=== PATIENT | female | born 1995 | race African-American/Black ===

== ENCOUNTER 2018-01-18 15:21 | Inpatient (IN) | payer MEDICAID, OTHER ==
[~2018-01-18] VITALS: Ht 152.4 cm; Wt 69.5 kg
[~2018-01-18 15:21] MED LIST: DICL-86 PO; Z.0.NO CURRENT MEDS
[2018-01-18 15:45] VITALS: BP 125/71; PULSE 123; RESP 18; TEMP 99; O2SAT 100
[2018-01-18] MEDS ORDERED: LIDOCAINE 1%/EPINEPHrine 1:100,000 SOLN 20 ML VIAL INFIL ONE (18:30)
[2018-01-18] MEDS ORDERED: cefTRIAXone INJ 1,000 MG in SODIUM CHLORIDE 0.9% INJ 100 ML IV ONE (18:45)
--- NOTE | 2018-01-18 18:49 | PD ---
HPI Chief Complaint: Related Problem Time Seen by Provider: 18:12 Travel History International Travel<30 days: No Contact w/Intl Traveler<30days: No Traveled to known affect area: No History of Present Illness HPI 22-year-old female here for evaluation of abdominal cramping with a positive home test as well as left buttock abscess. The patient reports that her last mental period was 11/09/17. This is her first . For the last 2 days she has been having intermittent lower abdominal cramping. She denies vaginal bleeding or discharge. She is sexually active with one partner and believe she is in a monogamous relationship. No urinary symptoms. Patient also reports a "boil" on her left buttock that she first noticed 2 days ago and has progressively increased in size. She has been squeezing the area. Pain to this area is moderate to severe, constant, worse with palpation. She has had subjective fevers. She denies history of IVDU. [facility] Past Medical History Medical History: Denies Significant Hx Tetanus Vaccination: < 5 Years ?: LMP: 11/09/17 Past Surgical History Surgical History: No Previous Surgery Social History Alcohol Use: No Tobacco Use: No Substance Use: No Allergies-Medications (Allergen,Severity, Reaction): Coded Allergies: No Known Allergies (Unverified Allergy, Unknown, 01/18/18) Reported Meds & Prescriptions Reported Meds & Active Scripts Active Review of Systems Except as stated in HPI: all other systems reviewed are Neg Physical Exam Narrative GENERAL: Well-developed, well-nourished, awake, alert, no apparent distress. SKIN: Focused skin assessment warm/dry. Exam performed in the presence of a female nurse. There is a large area of induration with central fluctuance to the left superior buttocks just lateral to the gluteal cleft. This does not track towards the rectum/anus. There is no spontaneous drainage. There is mild overlying warmth. No crepitus. This area was evaluated using a bedside ultrasound probe and shows a large approximately 4 x 4 centimeter hypoechoic area. HEAD: Atraumatic. Normocephalic. EYES: Pupils equal and round. No scleral icterus. No injection or drainage. ENT: Mucous membranes pink and moist. NECK: Trachea midline. No JVD. CARDIOVASCULAR: Regular rate and rhythm. RESPIRATORY: No accessory muscle use. Clear to auscultation. Breath sounds equal bilaterally. GASTROINTESTINAL: Abdomen soft, non-tender, nondistended. MUSCULOSKELETAL: No obvious deformities. No clubbing. No cyanosis. No edema. NEUROLOGICAL: Awake and alert. No obvious cranial nerve deficits. Motor grossly within normal limits. Normal speech. PSYCHIATRIC: Appropriate mood and affect; insight and judgment normal. Data Data Last Documented VS Vital Signs Date Time Temp Pulse Resp B/P (MAP) Pulse Ox O2 Delivery O2 Flow Rate FiO2 01/18/18 23:12 99.6 116 16 112/60 (77) 01/18/18 21:08 100 Room Air Orders Orders Beta Hcg (Quant/Titer) (01/18/18 18:20) Complete Blood Count With Diff (01/18/18 18:20) Comprehensive Metabolic Panel (01/18/18 18:20) Urinalysis - C+S If Indicated (01/18/18 18:20) Ed Urine Pregnancytest Poc (01/18/18 18:20) Lidocai-Epi 1%-1:100,000 Inj (Xylocaine- (01/18/18 18:30) Wound Culture And Gram Stain (01/18/18 18:22) Us Pelvis (Ques Preg/Ectopic) (01/18/18 ) Ondansetron Odt (Zofran Odt) (01/18/18 19:45) Cephalexin (Keflex) (01/18/18 19:45) Urine Culture (01/18/18 19:30) Sodium Chlor 0.9% 1000 Ml Inj (Ns 1000 M (01/18/18 21:45) Acetaminophen (Tylenol) (01/18/18 21:45) Sodium Chlor 0.9% 1000 Ml Inj (Ns 1000 M (01/18/18 22:30) Blood Culture (01/18/18 23:00) Vancomycin Inj (Vancomycin Inj) (01/18/18 23:30) Vancomycin Consult Pharmacy (Vancomycin (01/18/18 23:30) Admit To Inpatient (01/18/18 ) Vital Signs (Adult) Q4H (01/18/18 23:24) Activity Oob Ad Amaya (01/18/18 23:24) Litigation Secretary / Telemetry .CONTINUOUS (01/18/18 23:24) Intake + Output VALENTIN.QSHIFT (01/18/18 23:24) Diet Regular Basic (01/19/18 Breakfast) Sodium Chlor 0.9% 1000 Ml Inj (Ns 1000 M (01/18/18 23:24) Sodium Chloride 0.9% Flush (Ns Flush) (01/18/18 23:30) Sodium Chloride 0.9% Flush (Ns Flush) (01/19/18 09:00) Ondansetron Inj (Zofran Inj) (01/18/18 23:30) Comprehensive Metabolic Panel (01/19/18 06:00) Complete Blood Count With Diff (01/19/18 06:00) Consult Wound / Ostomy Nurse (01/18/18 23:24) Scd Bilateral/Knee High VALENTIN.BID (01/18/18 23:24) Teofilo Bilateral/Knee High VALENTIN.QSHIFT (01/18/18 23:27) Acetaminophen (Tylenol) (01/18/18 23:30) Docusate Sodium-Senna (Blossom-Colace) (01/19/18 09:00) Magnesium Hydroxide Liq (Milk Of Magnesi (01/18/18 23:30) Sennosides (Senokot) (01/18/18 23:30) Bisacodyl Supp (Dulcolax Supp) (01/18/18 23:30) Lactulose Liq (Lactulose Liq) (01/18/18 23:30) Inpatient Certification (01/18/18 ) Admit Order (Ed Use Only) (01/18/18 23:29) Ceftriaxone Inj (Rocephin Inj) (01/20/18 01:00) Labs Laboratory Tests Test 01/18/18 19:30 White Blood Count 9.6 TH/MM3 Red Blood Count 4.44 MIL/MM3 Hemoglobin 11.7 GM/DL Hematocrit 34.7 % Mean Corpuscular Volume 78.1 FL Mean Corpuscular Hemoglobin 26.4 PG Mean Corpuscular Hemoglobin Concent 33.8 % Red Cell Distribution Width 13.9 % Platelet Count 281 TH/MM3 Mean Platelet Volume 8.2 FL Neutrophils (%) (Auto) 81.5 % Lymphocytes (%) (Auto) 7.0 % Monocytes (%) (Auto) 11.0 % Eosinophils (%) (Auto) 0.2 % Basophils (%) (Auto) 0.3 % Neutrophils # (Auto) 7.9 TH/MM3 Lymphocytes # (Auto) 0.7 TH/MM3 Monocytes # (Auto) 1.1 TH/MM3 Eosinophils # (Auto) 0.0 TH/MM3 Basophils # (Auto) 0.0 TH/MM3 CBC Comment DIFF FINAL Differential Comment Urine Color YELLOW Urine Turbidity HAZY Urine pH 6.5 Urine Specific [place] 1.027 Urine Protein 30 mg/dL Urine Glucose (UA) NEG mg/dL Urine Ketones NEG mg/dL Urine Occult Blood MOD Urine Nitrite NEG Urine Bilirubin NEG Urine Urobilinogen LESS THAN 2.0 MG/DL Urine Leukocyte Esterase NEG Urine RBC 69 /hpf Urine WBC 4 /hpf Urine Squamous Epithelial Cells 10 /hpf Urine Bacteria MOD /hpf Urine Mucus MANY /lpf Microscopic Urinalysis Comment CULTURE INDICATED Blood Urea Nitrogen 8 MG/DL Creatinine 0.74 MG/DL Random Glucose 80 MG/DL Total Protein 8.3 GM/DL Albumin 3.4 GM/DL Calcium Level 9.4 MG/DL Alkaline Phosphatase 66 U/L Aspartate Amino Transf (AST/SGOT) 13 U/L Alanine Aminotransferase (ALT/SGPT) 17 U/L Total Bilirubin 0.2 MG/DL Sodium Level 132 MEQ/L Potassium Level 3.3 MEQ/L Chloride Level 100 MEQ/L Carbon Dioxide Level 21.0 MEQ/L Anion Gap 11 MEQ/L Estimat Glomerular Filtration Rate 118 ML/MIN Human Chorionic Gonadotropin, Quant 90931 MIU/ML [facility] Medical Decision Making Medical Screen Exam Complete: Yes Emergency Medical Condition: Yes Differential Diagnosis Left buttock abscess, , ectopic Narrative Course Vital signs reviewed. CBC: WBC 9.6, hemoglobin 11.7, hematocrit 34.7, platelets 281, neutrophils 82%. CMP is remarkable for potassium 3.3, otherwise unremarkable. Beta-hCG UA shows moderate bacteria, many mucus, 69 RBCs. Pelvic ultrasound: CONCLUSION: 1. Single intrauterine gestational sac corresponding to 10 weeks 4 days. 2. bradycardia with heart rate up to 97 bpm. 3. Small amount of free fluid in the pelvis. I discussed the bradycardia with the on-call OB hospitalist who states that this is a nonspecific finding. Patient had a large left buttock abscess that was incised and drained and packed with plain packing. See procedure note. The patient was informed to have the packing removed in 48 hours, and the dangers of keeping it in for longer than this. Patient was initially given 500 mg of oral Keflex as IV access was difficult to obtain an initial plan was for the patient to be discharged. The patient's initial heart rate was in the 120s. She was given 2 L of normal saline IV and oral Tylenol, however her heart rate only slightly improved to about 115, sinus. Blood pressure has remained normal. Tachycardia could be secondary to infection from abscess. Blood cultures obtained. The patient will be given a dose of IV vancomycin and will be admitted as she meets SIRS criteria. Patient was made aware of all findings and plan. Case discussed with hospitalist Dr. Dodson who will admit the patient to her service. Procedures Procedure Narrative Bedside ultrasound: Using the linear ultrasound probe, a bedside ultrasound was performed by me to evaluate area of induration on the patient's left buttock. There is an approximately 4 x 4 centimeter hypoechoic area that is consistent with an abscess. Incision and drainage of left buttock abscess: Area prepped with alcohol swab. 2 cc of 1% lidocaine with epinephrine was used for local anesthesia. An approximately 2 cm linear/vertical incision was made over the highest area of fluctuance with immediate release of foul-smelling purulence. All loculations were broken open with blunt probe, and the abscess pocket was flushed with normal saline. Culture of the purulence was obtained. 1 inch plain packing was placed into the abscess pocket. Sterile dressing applied. Diagnosis Primary Impression: SIRS (systemic inflammatory response syndrome) Additional Impressions: Left buttock abscess Intrauterine Admitting Information Admitting Physician Requests: it Uriel Reyes MD Jan 18, 2018 18:48
[2018-01-18] MEDS ORDERED: ONDANSETRON ODT 4 MG TAB PO ONE (19:45)
[2018-01-18] MEDS ORDERED: CEPHALEXIN MONOHYDRATE 500 MG CAP PO ONE (19:45)
[2018-01-18 19:57] LABS: AUTOMATED NEUTROPHIL # 7.9 TH/MM3 (1.8-7.7); BASOPHIL % 0.3 % (0.0-2.0); EOSINOPHIL % 0.2 % (0.0-4.0); HEMATOCRIT 34.7 % (35.0-46.0); HEMOGLOBIN 11.7 GM/DL (11.6-15.3); LYMPHOCYTE # 0.7 TH/MM3 (1.0-4.8); MEAN CELL VOLUME 78.1 FL (80.0-100.0); MEAN CORPUSCULAR HEMOGLOBIN 26.4 PG (27.0-34.0); MEAN CORPUSCULAR HGB CONC 33.8 % (32.0-36.0); MEAN PLATELET VOLUME 8.2 FL (7.0-11.0); MONOCYTE # 1.1 TH/MM3 (0-0.9); NEUT % 81.5 % (16.0-70.0); PLATELET COUNT 281 TH/MM3 (150-450); RED BLOOD COUNT 4.44 MIL/MM3 (4.00-5.30); RED CELL DISTRIBUTION WIDTH 13.9 % (11.6-17.2); WHITE BLOOD COUNT 9.6 TH/MM3 (4.0-11.0)
[2018-01-18 20:14] LABS: BACTERIA, URINE MOD /hpf; BILIRUBIN, URINE NEG (NEG); BLOOD, URINE MOD (NEG); GLUCOSE,URINE NEG (NEG); KETONE, URINE NEG (NEG); MUCUS URINE MANY /lpf (OCC); NITRITE,URINE NEG (NEG); PH, URINE 6.5 (5.0-8.5); SQUAMOUS EPITHELIAL CELL URINE 10 /hpf (0-5); URINE COLOR YELLOW (YELLW/STRAW); URINE LEUKOCYTE ESTERASE NEG (NEG)
[2018-01-18 20:20] LABS: ALBUMIN 3.4 GM/DL (3.4-5.0); AST (GOT) 13 U/L (15-37); BLOOD UREA NITROGEN 8 MG/DL (7-18); CALCIUM 9.4 MG/DL (8.5-10.1); CHLORIDE 100 MEQ/L (98-107); CREATININE 0.74 MG/DL (0.50-1.00); GLOMERULAR FILTRATION RATE 118 ML/MIN (>89); GLUCOSE,RANDOM 80 MG/DL (74-106); SODIUM (NA) 132 MEQ/L (136-145)
[2018-01-18 20:21] LABS: ALT (GPT) 17 U/L (10-53)
[2018-01-18 20:23] LABS: ALKALINE PHOSPHATASE 66 U/L (45-117); TOTAL BILIRUBIN ADULT 0.2 MG/DL (0.2-1.0); TOTAL PROTEIN 8.3 GM/DL (6.4-8.2)
[2018-01-18 21:08] VITALS: BP 107/57; PULSE 111; RESP 16; O2SAT 100
--- NOTE | 2018-01-18 21:16 | RADRPT ---
EXAM DATE/TIME: 01/18/2018 19:55 [place] COMPARISON: No previous studies available for comparison. INDICATIONS : Pelvic pain. LAB(S): Beta-hC,840 MEDICAL HISTORY : Pelvic pain. SURGICAL HISTORY : None. ENCOUNTER: Initial ACUITY: 1 day PAIN SCORE: 5/10 LOCATION: Left pelvis MEASUREMENTS: UTERUS: 11.7 x 6.0 x 5.5 cm ENDOMETRIAL STRIPE: 18 mm RIGHT OVARY: 2.6 x 2.9 x 2.1 cm LEFT OVARY: 2.1 x 2.5 x 1.5 cm FREE FLUID: Yes cul de sac CROWN RUMP LENGTH: 3.8 = 10 WKS 4 DAYS FHR: 97 BPM FINDINGS: UTERUS: There is a single intrauterine gestational sac with pole present. pole corresponds to 10 weeks 4 days. cardiac activity is present at 97 bpm. RIGHT OVARY: Ovary contains no mass or significant cystic lesion. LEFT OVARY: Ovary contains no mass or significant cystic lesion. MISCELLANEOUS: Free fluid in the cul-de-sac. CONCLUSION: 1. Single intrauterine gestational sac corresponding to 10 weeks 4 days. 2. bradycardia with heart rate up to 97 bpm. 3. Small amount of free fluid in the pelvis. Kai Mcintosh MD on January 18, 2018 at 21:10 Board Certified Radiologist. This report was verified electronically.
[2018-01-18] MEDS ORDERED: ACETAMINOPHEN 325 MG TAB PO ONE (21:45)
[2018-01-18] MEDS ORDERED: SODIUM CHLOR 0.9% 1000 ML INJ 1,000 ML IV ONE ×2 (21:45→22:30)
[2018-01-18 22:34] VITALS: PULSE 114
[2018-01-18 23:12] VITALS: BP 112/60; PULSE 116; RESP 16; TEMP 99.6
--- NOTE | 2018-01-18 23:28 | HHI.HP ---
HPI Service [facility] Primary Care Physician No Primary Care Physician Admission Diagnosis Diagnoses: (1) SIRS (systemic inflammatory response syndrome) Diagnosis: Principal (2) Left buttock abscess Diagnosis: Principal (3) Diagnosis: Principal Travel History International Travel<30 Days: No Contact w/Intl Traveler <30 Da: No Traveled to Known Affected Are: No History of Present Illness This is a 22-year-old (10wks) female with no significant PMH who presented to the ER w/ complaints of left buttock abscess. States she noticed a boil on her buttock 2 days ago which has been getting progressively worse, larger and more painful. Denies fever or chills, no nausea, vomiting or diarrhea. Has not initiated care as she is moving to [place] in 3 days and will be establishing w/ [employer] there. On arrival, BP 124/72, HR 110, O2 sat 100 % on RA, Temp 99.6. WBC normal however elevated neutrophil count. Chemistry essentially unremarkable. Pelvis US single intrauterine gestational sac corresponding to 10 weeks 4 days, bradycardia with heart rate up to 97, small amount of free fluid in the pelvis. Ob Hospitalist consulted by ER physician, bradycardia nonspecific finding, no intervention warranted. S/p I&D in addition to Vanc/Rocephin in ER, was to be d/c'd home, however pt w/ persistent tachycardia/fever. Review of Systems Except as stated in HPI: all other systems reviewed are Neg ROS: 14 point review of systems otherwise negative. Past Family Social History Past Medical History PMH: None Past Surgical History PAST SURGICAL HISTORY: None Allergies: Coded Allergies: No Known Allergies (Unverified Allergy, Unknown, 01/18/18) Family History PAST FAMILY HISTORY: Reviewed. No h/o DM or CAD Social History PAST SOCIAL HISTORY: Negative for alcohol, tobacco or drugs. Physical Exam Vital Signs Vital Signs Date Time Temp Pulse Resp B/P (MAP) Pulse Ox O2 Delivery O2 Flow Rate FiO2 01/18/18 23:12 99.6 116 16 112/60 (77) 01/18/18 22:34 114 01/18/18 21:08 111 16 107/57 (74) 100 Room Air 01/18/18 15:45 99.0 123 18 125/71 (89) 100 Physical Exam PE: GENERAL: Very pleasant young female in no acute distress. HEENT: PERRLA, EOMI. No scleral icterus or conjunctival pallor. No lid lag or facial droop. CARDIOVASCULAR: Regular rate and rhythm. No obvious murmurs to auscultation. No chest tenderness to palpation. RESPIRATORY: No obvious rhonchi or wheezing. Clear to auscultation. Breath sounds equal bilaterally. GASTROINTESTINAL: Abdomen soft, non-tender, nondistended. BS normal. MUSCULOSKELETAL: Extremities without clubbing, cyanosis, or edema. No obvious deformities. Left gluteal abscess s/p I&D, packing in place. NEUROLOGICAL: Awake, alert and oriented x4. No focal neurologic deficits. Moving both upper and lower extremities spontaneously. Laboratory Laboratory Tests Test 01/18/18 19:30 White Blood Count 9.6 Red Blood Count 4.44 Hemoglobin 11.7 Hematocrit 34.7 Mean Corpuscular Volume 78.1 Mean Corpuscular Hemoglobin 26.4 Mean Corpuscular Hemoglobin Concent 33.8 Red Cell Distribution Width 13.9 Platelet Count 281 Mean Platelet Volume 8.2 Neutrophils (%) (Auto) 81.5 Lymphocytes (%) (Auto) 7.0 Monocytes (%) (Auto) 11.0 Eosinophils (%) (Auto) 0.2 Basophils (%) (Auto) 0.3 Neutrophils # (Auto) 7.9 Lymphocytes # (Auto) 0.7 Monocytes # (Auto) 1.1 Eosinophils # (Auto) 0.0 Basophils # (Auto) 0.0 CBC Comment DIFF FINAL Differential Comment Urine Color YELLOW Urine Turbidity HAZY Urine pH 6.5 Urine Specific [place] 1.027 Urine Protein 30 Urine Glucose (UA) NEG Urine Ketones NEG Urine Occult Blood MOD Urine Nitrite NEG Urine Bilirubin NEG Urine Urobilinogen LESS THAN 2.0 Urine Leukocyte Esterase NEG Urine RBC 69 Urine WBC 4 Urine Squamous Epithelial Cells 10 Urine Bacteria MOD Urine Mucus MANY Microscopic Urinalysis Comment CULTURE INDICATED Blood Urea Nitrogen 8 Creatinine 0.74 Random Glucose 80 Total Protein 8.3 Albumin 3.4 Calcium Level 9.4 Alkaline Phosphatase 66 Aspartate Amino Transf (AST/SGOT) 13 Alanine Aminotransferase (ALT/SGPT) 17 Total Bilirubin 0.2 Sodium Level 132 Potassium Level 3.3 Chloride Level 100 Carbon Dioxide Level 21.0 Anion Gap 11 Estimat Glomerular Filtration Rate 118 Human Chorionic Gonadotropin, Quant [id number] Date/Time Source Procedure Growth Status 01/18/18 19:30 Urine Random Urine Urine Culture Pending Received 01/18/18 19:30 Wound Buttock Gram Stain Pending Received 01/18/18 19:30 Wound Buttock Wound Culture Pending Received Result Diagram: 01/18/18192901/18/181929 Caprini VTE Risk Assessment Caprini VTE Risk Assessment: No/Low Risk (score <= 1) Caprini Risk Assessment Model Point Value = 1 Point Value = 2 Point Value = 3 Point Value = 5 Age 41-60 Minor surgery BMI > 25 kg/m2 Swollen legs Varicose veins or History of unexplained or recurrent spontaneous Oral contraceptives or hormone replacement Sepsis (< 1 month) Serious lung disease, including pneumonia (< 1 month) Abnormal pulmonary function Acute myocardial infarction Congestive heart failure (< 1 month) History of inflammatory bowel disease Medical patient at bed rest Age 61-74 Arthroscopic surgery Major open surgery (> 45 min) Laparoscopic surgery (> 45 min) Malignancy Confined to bed (> 72 hours) Immobilizing plaster cast Central venous access Age >= 75 History of VTE Family history of VTE Factor V Leiden Prothrombin [id number] Lupus anticoagulant Anticardiolipin antibodies Elevated serum homocysteine Heparin-induced thrombocytopenia Other congenital or acquired thrombophilia Stroke (< 1 month) Elective arthroplasty Hip, pelvis, or leg fracture Acute spinal cord injury (< 1 month) Prophylaxis Regimen Total Risk Factor Score Risk Level Prophylaxis Regimen 0-1 Low Early ambulation 2 Moderate Order ONE of the following: *Sequential Compression Device (SCD) *Heparin 5000 units SQ BID 3-4 Higher Order ONE of the following medications: *Heparin 5000 units SQ TID *Enoxaparin/Lovenox 40 mg SQ daily (WT < 150 kg, CrCl > 30 mL/min) *Enoxaparin/Lovenox 30 mg SQ daily (WT < 150 kg, CrCl > 10-29 mL/min) *Enoxaparin/Lovenox 30 mg SQ BID (WT < 150 kg, CrCl > 30 mL/min) AND/OR *Sequential Compression Device (SCD) 5 or more Highest Order ONE of the following medications: *Heparin 5000 units SQ TID (Preferred with Epidurals) *Enoxaparin/Lovenox 40 mg SQ daily (WT < 150 kg, CrCl > 30 mL/min) *Enoxaparin/Lovenox 30 mg SQ daily (WT < 150 kg, CrCl > 10-29 mL/min) *Enoxaparin/Lovenox 30 mg SQ BID (WT < 150 kg, CrCl > 30 mL/min) AND *Sequential Compression Device (SCD) Assessment and Plan Problem List: (1) SIRS (systemic inflammatory response syndrome) ICD Code: R65.10 - Systemic inflammatory response syndrome (SIRS) of non- infectious origin without acute organ dysfunction Status: Acute (2) Left buttock abscess ICD Code: L02.31 - Cutaneous abscess of buttock Status: Acute (3) ICD Code: Z34.90 - Encounter for supervision of normal , unspecified, unspecified trimester Assessment and Plan A/P: 1. SIRS: Temp 99.6, HR 120's, WBC normal however elevated neutrophil count, s/ p IVF w/ persistent tachycardia. Continue w/ IVF, Tylenol prn, no Motrin in light of . Telemetry. 2. Left Gluteal Abscess: s/p I&D in ER, follow up cultures, continue w/ IV Abx , Wound Consult for dressing changes. 3. : 10wks, Pelvic US w/ 10wk, 4 day intrauterine , bradycardia, Ob Hospitalist consulted by ER physician, nonspecific finding, no intervention needed. Pt moving to [place] in 3 days, will establish w/ [employer] Development Manager in [place]. 4. DVT Prophylaxis: SCD/Teds 5. Social work for d/c planning as needed. 6. Case discussed at length w/ ER physician, labs/records/imaging reviewed by [place] Physician Certification 2 Midnight Certification Type: Admission for Inpatient Services Order for Inpatient Services The services are ordered in accordance with Medicare regulations or non- Medicare payer requirements, as applicable. In the case of services not specified as inpatient-only, they are appropriately provided as inpatient services in accordance with the 2-midnight benchmark. Estimated LOS (days): 2 days is the estimated time the patient will need to remain in the hospital, assuming treatment plan goals are met and no additional complications. Post-Hospital Plan: Not yet determined Zoe Dodson MD Jan 18, 2018 23:28
[2018-01-18] MEDS ORDERED: MAGNESIUM HYDROXIDE SUSP 30 ML CUP PO PRN (23:30)
[2018-01-18] MEDS ORDERED: Vancomycin Consult Pharmacy 1 EA OTHER SCH (23:30)
[2018-01-18] MEDS ORDERED: LACTULOSE SYRUP 20 GM/30 ML CUP PO PRN (23:30)
[2018-01-18] MEDS ORDERED: BISACODYL 10 MG SUPP RECTAL PRN (23:30)
[2018-01-18] MEDS ORDERED: ACETAMINOPHEN 325 MG TAB PO PRN (23:30)
[2018-01-18] MEDS ORDERED: SODIUM CHLORIDE 0.9% FLUSH 10 ML FLUSH IV FLUSH PRN (23:30)
[2018-01-18] MEDS ORDERED: ONDANSETRON HCL 4 MG/2 ML VIAL IVP PRN (23:30)
[2018-01-18] MEDS ORDERED: SENNOSIDES 8.6 MG TAB PO PRN (23:30)
[2018-01-18] MEDS ORDERED: VANCOMYCIN INJ 1,000 MG in SODIUM CHLOR 0.9% 250 ML INJ 250 ML IV ONE (23:30)
[2018-01-18] MEDS: SODIUM CHLOR 0.9% 1000 ML INJ 1,000 ML IV SCH (23:43)
[2018-01-19] VITALS (12 sets, daily range): BP systolic 100–131; BP diastolic 50–76; PULSE 84–115; RESP 16; TEMP 97.6–98.3; O2SAT 100
[2018-01-19] MEDS: SODIUM CHLORIDE 0.9% FLUSH 10 ML FLUSH IV FLUSH SCH ×2 (09:00→21:00)
--- NOTE | 2018-01-19 09:00 | HHI.PR ---
Subjective Remarks per patient decrease pain left gluteal area- "just a little" no history of UTI, vaginal discharge or any skin infections in the past Objective Vitals Vital Signs Date Time Temp Pulse Resp B/P (MAP) Pulse Ox O2 Delivery O2 Flow Rate FiO2 01/19/18 04:08 Room Air 01/19/18 04:00 89 01/19/18 04:00 97.7 96 16 100/56 (71) 100 01/19/18 00:50 104 01/19/18 00:38 01/19/18 00:30 98.2 107 16 131/76 (94) 100 01/19/18 00:30 Room Air 01/19/18 00:04 104 01/18/18 23:12 99.6 116 16 112/60 (77) 01/18/18 22:34 114 01/18/18 21:08 111 16 107/57 (74) 100 Room Air 01/18/18 15:45 99.0 123 18 125/71 (89) 100 I/O 01/18/18 01/18/18 01/18/18 01/19/18 01/19/18 01/19/18 07:00 15:00 23:00 07:00 15:00 23:00 Intake Total 240 ml Balance 240 ml Intake Oral 240 ml # Voids 2 # Bowel Movements 0 Result Diagram: 01/18/18192901/18/181929 Imaging Last Impressions Pelvis Ultrasound 01/18/18 0000 Signed Impressions: Service Date/Time: Thursday, January 18, 2018 19:55 - CONCLUSION: 1. Single intrauterine gestational sac corresponding to 10 weeks 4 days. 2. bradycardia with heart rate up to 97 bpm. 3. Small amount of free fluid in the pelvis. Kai Mcintosh MD Objective Remarks awake and alert, no acute distress anicteric lungs- no rales regular rhythm abdomen soft, nontender Left gluteal area- small incision s/p I and small with area of fluctuance, less tender to touch per patient no edema A/P Problem List: (1) SIRS (systemic inflammatory response syndrome) ICD Code: R65.10 - Systemic inflammatory response syndrome (SIRS) of non- infectious origin without acute organ dysfunction Status: Acute (2) Left buttock abscess ICD Code: L02.31 - Cutaneous abscess of buttock Status: Acute (3) ICD Code: Z34.90 - Encounter for supervision of normal , unspecified, unspecified trimester Assessment and Plan 22 years old female Sepsis secondary to left Gluteal abscess S/P I and D- pus obtained- per patient first episode cultures, gram stain pending, maNy WBCs Packing in place. wound care team consult consult Infectious disease for AB recommendations - d/w Pharmacy- Don - re: ? Vancomycin safety continue on IV Ceftriaxone for now Continue w/ IVF, Tylenol prn, PU 10 weeks AOG OB Hospitalist consulted by ER physician Pt moving to [place] in 3 days, will establish w/ [employer] in [place]. Hypokalemia- recheck BMP DVT Prophylaxis: SCD/Teds. encourage patient to up and ambulate around her room Social work for d/c planning as needed. Problem Qualifiers (1) : Qualified Codes: Z3A.10 - 10 weeks gestation of Андрей Rayo MD Jan 19, 2018 09:00
[2018-01-19] MEDS: DOCUSATE SODIUM 50 MG/SENNA 8.6 MG TAB PO SCH ×2 (10:13→22:59)
[2018-01-19] MEDS: SODIUM CHLOR 0.9% 1000 ML INJ 1,000 ML IV SCH ×2 (10:17→19:24)
[2018-01-19] MEDS ORDERED: LIDOCAINE 4% CREAM 5 GM TUBE TOPICAL PRN (11:00)
[2018-01-19 14:07] LABS: AUTOMATED NEUTROPHIL # 4.4 TH/MM3 (1.8-7.7); BASOPHIL % 0.2 % (0.0-2.0); EOSINOPHIL # 0.1 TH/MM3 (0-0.4); EOSINOPHIL % 1.1 % (0.0-4.0); HEMATOCRIT 30.8 % (35.0-46.0); HEMOGLOBIN 10.3 GM/DL (11.6-15.3); LYMPH % 13.8 % (9.0-44.0); LYMPHOCYTE # 0.8 TH/MM3 (1.0-4.8); MEAN CELL VOLUME 78.8 FL (80.0-100.0); MEAN CORPUSCULAR HEMOGLOBIN 26.4 PG (27.0-34.0); MEAN CORPUSCULAR HGB CONC 33.4 % (32.0-36.0); MEAN PLATELET VOLUME 7.9 FL (7.0-11.0); MONO % 8.2 % (0.0-8.0); MONOCYTE # 0.5 TH/MM3 (0-0.9); NEUT % 76.7 % (16.0-70.0); PLATELET COUNT 254 TH/MM3 (150-450); RED BLOOD COUNT 3.91 MIL/MM3 (4.00-5.30); RED CELL DISTRIBUTION WIDTH 14.3 % (11.6-17.2); WHITE BLOOD COUNT 5.8 TH/MM3 (4.0-11.0)
[2018-01-19 14:37] LABS: ALBUMIN 2.8 GM/DL (3.4-5.0); AST (GOT) 10 U/L (15-37); BICARBONATE 22.5 MEQ/L (21.0-32.0); BLOOD UREA NITROGEN 7 MG/DL (7-18); CALCIUM 8.8 MG/DL (8.5-10.1); CHLORIDE 106 MEQ/L (98-107); CREATININE 0.54 MG/DL (0.50-1.00); GLOMERULAR FILTRATION RATE 169 ML/MIN (>89); GLUCOSE,RANDOM 92 MG/DL (74-106); SODIUM (NA) 138 MEQ/L (136-145)
[2018-01-19 14:39] LABS: ALKALINE PHOSPHATASE 58 U/L (45-117); ALT (GPT) 14 U/L (10-53); TOTAL BILIRUBIN ADULT 0.1 MG/DL (0.2-1.0)
--- NOTE | 2018-01-19 15:21 | PD.WCN.NOT ---
Wound Consult Description: Wound consult ordered by for wound management of gluteal abscess Communicated with: Natty robertson, Recommendation: 1. Offer patient to shower prior to dressing change. 2. Apply lidocaine 4% to periwound and wound base >10min prior to dressing change 3. Gently pack wound base with Maxorb AG cut in 1/2 inch strips 4. Cover with dry gauze and secure with boarder gauze sign and date. 5. Change dressing daily or as needed for dislodgement/exudate. Additional Information: Patient was seen today by caption writer and Natty robertson for wound management of gluteal abscess.Patient alert and oriented x3 resting in bed.Dressing removed from Right upper inner buttocks ~8 inch of plain packing removed with out difficulty.Wound cleansed with normal saline pat dry Lidocaine 4% applied to periwound and and wound base using sterile cotton tip applicator.Leather Belt Loop Cutter let lidocaine set for ~15 min.Incision site measures 2.2cm x 0.4cm x 4.0cm wound base not visualized by caption writer induration noted to periwound ~3cm circumferentially moderate serosanguineous drainage noted to prior dressing with out odor. Wound cleansed with normal saline.Maxorb cut in 1/2 inch strips gently pack into wound cavity/base ~4 inch single piece pack in wound with tail exposed.Wound covered with dry gauze secured with 4x4 boarder dressing sign and dated.Patient tolerated wound care well. Edinson Spain [facility] Jan 19, 2018 15:21
--- NOTE | 2018-01-19 17:40 | PD.ID.CON ---
History of Present Illness Service ID Consult Requested By Reason for Consult Evaluation and mment of Left buttock skin abscess/cellulitis. Primary Care Physician No Primary Care Physician Diagnoses: History of Present Illness is a 22 y/o AAF who is 10 weeks . She has no significant medical or surgical history other than once a year left gluteal abscess. She denies shaving in that area. She noticed a boil on her buttock 2 days ago which has been getting progressively worse, larger and more painful. Denies fever or chills, no nausea, vomiting or diarrhea. Has not initiated care as she is moving to [place] in 3 days and will be establishing w/ [employer] there. On arrival, BP 124/72, HR 110, O2 sat 100% on RA, Temp 99.6. WBC normal however elevated neutrophil count. Chemistry essentially unremarkable. Pelvis US single intrauterine gestational sac corresponding to 10 weeks 4 days, bradycardia with heart rate up to 97, small amount of free fluid in the pelvis. Ob Hospitalist consulted by ER physician, bradycardia nonspecific finding, no intervention warranted. S/p I&D in addition to Vanc/Rocephin in ER , was to be d/c'd home, however pt w/ persistent tachycardia/fever. ID consulted for eval and Mment of Left buttock skin abscess and cellulitis. Review of Systems Constitutional: DENIES: Diaphoretic episodes, Fatigue, Fever, Weight gain, Weight loss, Chills, Dizziness, Change in appetite, Night Sweats Endocrine: DENIES: Abnorml menstrual pattern, Heat/cold intolerance, Polydipsia , Polyuria, Polyphagia Eyes: DENIES: Blurred vision, Diplopia, Eye inflammation, Eye pain, Vision loss , Photosensitivity, Double Vision Ears, nose, mouth, throat: DENIES: Tinnitus, Hearing loss, Vertigo, Nasal discharge, Oral lesions, Throat pain, Hoarseness, Ear Pain, Running Nose, Epistaxis, Sinus Pain, Toothache, Odynophagia Respiratory: DENIES: Apneas, Cough, Snoring, Wheezing, Hemoptysis, Sputum production, Shortness of breath Cardiovascular: DENIES: Chest pain, Palpitations, Syncope, Dyspnea on Exertion , PND, Lower Extremity Edema, Orthopnea, Claudication Gastrointestinal: DENIES: Abdominal pain, Black stools, Bloody stools, Constipation, Diarrhea, Nausea, Vomiting, Difficulty Swallowing, Anorexia Genitourinary: DENIES: Abnormal vaginal bleeding, Dysmenorrhea, Dyspareunia, Sexual dysfunction, Urinary frequency, Urinary incontinence, Urgency, Hematuria , Dysuria, Nocturia, Vaginal discharge Musculoskeletal: DENIES: Joint pain, Muscle aches, Stiffness, Joint Swelling, Back pain, Neck pain Integumentary: DENIES: Abnormal pigmentation, Pruritus, Rash, Nail changes, Breast masses, Breast skin changes, Nipple discharge Hematologic/lymphatic: DENIES: Bruising, Lymphadenopathy Immunologic/allergic: DENIES: Eczema, Urticaria Neurologic: COMPLAINS OF: Abnormal gait, Headache, Localized weakness, Paresthesias, Seizures, Speech Problems, Tremor, Poor Balance Psychiatric: DENIES: Anxiety, Confusion, Mood changes, Depression, Hallucinations, Agitation, Suicidal Ideation, Homicidal Ideation, Delusions Except as stated in HPI: all other systems reviewed are Neg Past Family Social History Allergies: Coded Allergies: No Known Allergies (Unverified Allergy, Unknown, 01/18/18) Past Medical History None Past Surgical History None Reported Medications Reported Meds & Active Scripts Active Active Ordered Medications Current Medications Medications (Trade) Dose Ordered Sig/Aliya Route Start Time Stop Time Status Last Admin Ceftriaxone Sodium 1000 mg/ Sodium Chloride 100 ml @ 200 mls/hr Q24H IV 01/20/18 01:00 Sodium Chloride 1,000 ml @ 100 mls/hr Q10H IV 01/18/18 23:24 01/19/18 10:17 (NS Flush) 2 ml UNSCH PRN IV FLUSH 01/18/18 23:30 (NS Flush) 2 ml BID IV FLUSH 01/19/18 09:00 (Zofran Inj) 4 mg Q6H PRN IVP 01/18/18 23:30 (Tylenol) 650 mg Q6H PRN PO 01/18/18 23:30 (Blossom-Colace) 1 tab BID PO 01/19/18 09:00 01/19/18 10:13 (Milk Of Magnesia Liq) 30 ml Q12H PRN PO 01/18/18 23:30 (Senokot) 17.2 mg Q12H PRN PO 01/18/18 23:30 (Dulcolax Supp) 10 mg DAILY PRN RECTAL 01/18/18 23:30 (Lactulose Liq) 30 ml DAILY PRN PO 01/18/18 23:30 (L-M-X 4 Cream) 1 applic Q24H PRN TOPICAL 01/19/18 11:00 Family History reviewed and NC to current ID problems. Social History Denies IVDA, Alcohol or smoking. Moving to [place] after discharge. Physical Exam Vital Signs Vital Signs Date Time Temp Pulse Resp B/P (MAP) Pulse Ox O2 Delivery O2 Flow Rate FiO2 01/19/18 16:04 98.3 105 16 113/62 (79) 100 01/19/18 12:06 98.3 107 16 110/60 (77) 100 01/19/18 12:00 100 01/19/18 08:04 97.7 87 16 117/60 (79) 100 01/19/18 08:00 84 01/19/18 07:00 Room Air 01/19/18 04:08 Room Air 01/19/18 04:00 89 01/19/18 04:00 97.7 96 16 100/56 (71) 100 01/19/18 00:50 104 01/19/18 00:38 01/19/18 00:30 98.2 107 16 131/76 (94) 100 01/19/18 00:30 Room Air 01/19/18 00:04 104 01/18/18 23:12 99.6 116 16 112/60 (77) 01/18/18 22:34 114 01/18/18 21:08 111 16 107/57 (74) 100 Room Air Physical Exam GENERAL: This is a well-nourished, well-developed patient, in no apparent distress. SKIN: No rashes, ecchymoses or lesions. Cool and dry. HEAD: Atraumatic. Normocephalic. No temporal or scalp tenderness. EYES: Pupils equal round and reactive. Extraocular motions intact. No scleral icterus. No injection or drainage. ENT: Nose without bleeding, purulent drainage or septal hematoma. Throat without erythema, tonsillar hypertrophy or exudate. Uvula midline. Airway patent. NECK: Trachea midline. Supple, nontender, no meningeal signs. CARDIOVASCULAR: Regular rate and rhythm without murmurs, gallops, or rubs. RESPIRATORY: Clear to auscultation. Breath sounds equal bilaterally. No wheezes , rales, or rhonchi. GASTROINTESTINAL: Abdomen soft, non-tender, nondistended. MUSCULOSKELETAL: Extremities without clubbing, cyanosis, or edema. No joint tenderness, effusion, or edema noted. No calf tenderness. Negative Homans sign bilaterally. NEUROLOGICAL: Awake and alert. Non focal Left gluteal area with packing noted. Induration around the abscess site. Packing with pale yellow discharge. Psych cooperative IV line sites with no e.o infection. Laboratory Laboratory Tests Test 01/18/18 19:30 01/19/18 13:44 White Blood Count 9.6 5.8 Red Blood Count 4.44 3.91 Hemoglobin 11.7 10.3 Hematocrit 34.7 30.8 Mean Corpuscular Volume 78.1 78.8 Mean Corpuscular Hemoglobin 26.4 26.4 Mean Corpuscular Hemoglobin Concent 33.8 33.4 Red Cell Distribution Width 13.9 14.3 Platelet Count 281 254 Mean Platelet Volume 8.2 7.9 Neutrophils (%) (Auto) 81.5 76.7 Lymphocytes (%) (Auto) 7.0 13.8 Monocytes (%) (Auto) 11.0 8.2 Eosinophils (%) (Auto) 0.2 1.1 Basophils (%) (Auto) 0.3 0.2 Neutrophils # (Auto) 7.9 4.4 Lymphocytes # (Auto) 0.7 0.8 Monocytes # (Auto) 1.1 0.5 Eosinophils # (Auto) 0.0 0.1 Basophils # (Auto) 0.0 0.0 CBC Comment DIFF FINAL DIFF FINAL Differential Comment Urine Color YELLOW Urine Turbidity HAZY Urine pH 6.5 Urine Specific [place] 1.027 Urine Protein 30 Urine Glucose (UA) NEG Urine Ketones NEG Urine Occult Blood MOD Urine Nitrite NEG Urine Bilirubin NEG Urine Urobilinogen LESS THAN 2.0 Urine Leukocyte Esterase NEG Urine RBC 69 Urine WBC 4 Urine Squamous Epithelial Cells 10 Urine Bacteria MOD Urine Mucus MANY Microscopic Urinalysis Comment CULTURE INDICATED Blood Urea Nitrogen 8 7 Creatinine 0.74 0.54 Random Glucose 80 92 Total Protein 8.3 7.0 Albumin 3.4 2.8 Calcium Level 9.4 8.8 Alkaline Phosphatase 66 58 Aspartate Amino Transf (AST/SGOT) 13 10 Alanine Aminotransferase (ALT/SGPT) 17 14 Total Bilirubin 0.2 0.1 Sodium Level 132 138 Potassium Level 3.3 3.5 Chloride Level 100 106 Carbon Dioxide Level 21.0 22.5 Anion Gap 11 10 Estimat Glomerular Filtration Rate 118 169 Human Chorionic Gonadotropin, Quant [id number] Date/Time Source Procedure Growth Status 01/18/18 23:10 Blood Peripheral Aerobic Blood Culture - Preliminary NO GROWTH IN 1 DAY Resulted 01/18/18 23:10 Blood Peripheral Anaerobic Blood Culture - Preliminary NO GROWTH IN 1 DAY Resulted 01/18/18 19:30 Urine Random Urine Urine Culture - Preliminary IMMATURE GROWTH - REINCUBATE Resulted 01/18/18 19:30 Wound Buttock Gram Stain - Final Resulted 01/18/18 19:30 Wound Buttock Wound Culture - Preliminary NO GROWTH IN 24 HOURS. Resulted Result Diagram: 01/19/18 1344 01/19/18 1344 Imaging Last Impressions Pelvis Ultrasound 01/18/18 0000 Signed Impressions: Service Date/Time: Thursday, January 18, 2018 19:55 - CONCLUSION: 1. Single intrauterine gestational sac corresponding to 10 weeks 4 days. 2. bradycardia with heart rate up to 97 bpm. 3. Small amount of free fluid in the pelvis. Kai Mcintosh MD Assessment and Plan Assessment and Plan Left gluteal abscess s/p I&D at 10 weeks Recs DC Rocephin IV Start Keflex Start Clindamycin oral. If tolerates this regimen then DC home on 7 more days of treatment. Follow cultures if new organism please call me. jose eduardo RN Dw patient. Will sign off please call back if any change in clinical condition or questions. Rohini Felix MD Jan 19, 2018 17:40
[2018-01-19] MEDS: CEPHALEXIN MONOHYDRATE 500 MG CAP PO SCH ×2 (17:45→22:59)
[2018-01-19] MEDS: CLINDAMYCIN 150 MG CAP PO SCH (18:26)
[2018-01-20] VITALS: PULSE 93
[2018-01-20] MEDS: CLINDAMYCIN 150 MG CAP PO SCH ×3 (00:55→12:18)
[2018-01-20] MEDS ORDERED: cefTRIAXone INJ 1,000 MG in SODIUM CHLORIDE 0.9% INJ 100 ML IV SCH (01:00)
[2018-01-20 04:00] VITALS: BP 92/55; PULSE 88; PULSE 91; RESP 16; TEMP 97.3; O2SAT 99
[2018-01-20] MEDS: CEPHALEXIN MONOHYDRATE 500 MG CAP PO SCH ×2 (05:09→12:18)
[2018-01-20] MEDS: SODIUM CHLOR 0.9% 1000 ML INJ 1,000 ML IV SCH (05:10)
[2018-01-20 08:00] VITALS: PULSE 80
[2018-01-20 08:04] VITALS: BP 106/57; PULSE 89; RESP 18; TEMP 97.6; O2SAT 100
[2018-01-20] MEDS: SODIUM CHLORIDE 0.9% FLUSH 10 ML FLUSH IV FLUSH SCH (08:41)
[2018-01-20] MEDS: DOCUSATE SODIUM 50 MG/SENNA 8.6 MG TAB PO SCH (08:41)
[2018-01-20 12:00] VITALS: PULSE 92
[2018-01-20 12:04] VITALS: BP 117/72; PULSE 93; RESP 18; TEMP 97.3; O2SAT 100
--- NOTE | 2018-01-20 13:10 | HHI.PR ---
Subjective Remarks Follow up abscess. The patient states that the wound is less painful today. She wants to go home. No other complaints at this time. Denies fever/chills. Objective Vitals Vital Signs Date Time Temp Pulse Resp B/P (MAP) Pulse Ox O2 Delivery O2 Flow Rate FiO2 01/20/18 08:04 97.6 89 18 106/57 (73) 100 01/20/18 08:00 80 01/20/18 04:00 97.3 91 16 92/55 (67) 99 01/20/18 04:00 88 01/20/18 01:23 Room Air 01/20/18 00:00 93 01/19/18 23:35 97.6 95 16 130/69 (89) 100 01/19/18 20:00 108 01/19/18 20:00 97.9 115 16 101/50 (67) 100 01/19/18 16:04 98.3 105 16 113/62 (79) 100 01/19/18 16:00 98 I/O 01/19/18 01/19/18 01/19/18 01/20/18 01/20/18 01/20/18 07:00 15:00 23:00 07:00 15:00 23:00 Intake Total 240 ml 840 ml 720 ml Output Total 1000 ml Balance 240 ml 840 ml -280 ml Intake Oral 240 ml 840 ml 720 ml Output Urine Total 1000 ml Stool Total 0 ml # Voids 2 4 # Bowel Movements 0 0 Result Diagram: 01/19/18 1344 01/19/18 1344 Imaging Last Impressions Pelvis Ultrasound 01/18/18 0000 Signed Impressions: Service Date/Time: Thursday, January 18, 2018 19:55 - CONCLUSION: 1. Single intrauterine gestational sac corresponding to 10 weeks 4 days. 2. bradycardia with heart rate up to 97 bpm. 3. Small amount of free fluid in the pelvis. Kai Mcintosh MD Objective Remarks Examined in the presence of the nurse. General: No acute distress. Heart: Regular rate and rhythm. No murmur. Lungs: Clear to auscultation bilaterally. No wheezes, rales, or rhonchi. Breathing is nonlabored. Abdomen: Soft, nontender, nondistended. Extremities: No lower extremity edema. Psych: Alert and oriented. Neuro: Normal speech. No focal deficits noted. Skin: Small wound in the left buttock with surrounding induration. Procedures Incision and drainage of left buttock abscess Urinary Catheter: No Vascular Central Line Catheter: No A/P Problem List: (1) SIRS (systemic inflammatory response syndrome) ICD Code: R65.10 - Systemic inflammatory response syndrome (SIRS) of non- infectious origin without acute organ dysfunction Status: Acute (2) Left buttock abscess ICD Code: L02.31 - Cutaneous abscess of buttock Status: Acute (3) ICD Code: Z34.90 - Encounter for supervision of normal , unspecified, unspecified trimester Assessment and Plan 1. Sepsis: Resolved. Secondary to abscess. Continue antibiotics. 2. Left buttock abscess: Status post incision and drainage. Cultures are negative so far. Appreciate wound care and infectious disease recommendations. Continue oral antibiotics. 3. Intrauterine : Patient is approximately 10 weeks . OB hospitalist was consulted by the ER physician. The patient is moving to [place] and will establish with an [employer] there. 4. DVT prophylaxis: Ambulation. Discharge Planning Discharge home in stable condition. Follow-up with PCP, OB. Regular diet as tolerated. Activity as tolerated. Problem Qualifiers (1) : Qualified Codes: Z3A.10 - 10 weeks gestation of Gabe Kendrick MD January 20, 2018 13:10
[2018-01-20] MEDS ORDERED: CEPH500C PO (13:16)
[2018-01-20] MEDS ORDERED: CLIN150 PO (13:16)
--- NOTE | 2018-01-20 13:16 | HHI.DCPOC ---
Discharge Care Plan Diagnosis: (1) (2) SIRS (systemic inflammatory response syndrome) (3) Left buttock abscess (4) Intrauterine Goals to Promote Your Health * To prevent worsening of your condition and complications * To maintain your health at the optimal level Directions to Meet Your Goals Take your medications as prescribed Follow your dietary instruction Follow activity as directed Keep your appointments as scheduled Take your immunizations and boosters as scheduled If your symptoms worsen call your PCP, if no PCP go to Urgent Care Center or Emergency Room Smoking is Dangerous to Your Health. Avoid second hand smoke Call the 24-hour hour crisis hotline for domestic abuse at Gabe Kendrick MD January 20, 2018 13:16
--- NOTE | 2018-01-20 16:17 | HHI.IDPN ---
Subjective Subjective Remarks is a 22 y/o AAF who is 10 weeks . She has no significant medical or surgical history other than once a year left gluteal abscess. She denies shaving in that area. She noticed a boil on her buttock 2 days ago which has been getting progressively worse, larger and more painful. Denies fever or chills, no nausea, vomiting or diarrhea. Has not initiated care as she is moving to [place] in 3 days and will be establishing w/ [employer] there. On arrival, BP 124/72, HR 110, O2 sat 100% on RA, Temp 99.6. WBC normal however elevated neutrophil count. Chemistry essentially unremarkable. Pelvis US single intrauterine gestational sac corresponding to 10 weeks 4 days, bradycardia with heart rate up to 97, small amount of free fluid in the pelvis. Ob Hospitalist consulted by ER physician, bradycardia nonspecific finding, no intervention warranted. S/p I&D in addition to Vanc/Rocephin in ER , was to be d/c'd home, however pt w/ persistent tachycardia/fever. ID consulted for eval and Mment of Left buttock skin abscess and cellulitis. Overnight events reviewed Reconsulted by for worsening abscess. No fevers HR better. Wishes to go home. asked me to see patient as he was concerned about induration and this was his first time seeing patient. No rash No diarrhea Antibiotics Keflex Clinda Lines Line sites with no e.o infection Past Medical History at 10 weeks. Allergies: Coded Allergies: No Known Allergies (Unverified Allergy, Unknown, 01/18/18) Objective . Vital Signs Date Time Temp Pulse Resp B/P (MAP) Pulse Ox O2 Delivery O2 Flow Rate FiO2 01/20/18 12:04 97.3 93 18 117/72 (87) 100 01/20/18 08:04 97.6 89 18 106/57 (73) 100 01/20/18 08:00 80 01/20/18 04:00 97.3 91 16 92/55 (67) 99 01/20/18 04:00 88 01/20/18 01:23 Room Air 01/20/18 00:00 93 01/19/18 23:35 97.6 95 16 130/69 (89) 100 01/19/18 20:00 108 01/19/18 20:00 97.9 115 16 101/50 (67) 100 . Laboratory Tests Test 01/18/18 19:30 01/19/18 13:44 White Blood Count 9.6 TH/MM3 5.8 TH/MM3 Red Blood Count 4.44 MIL/MM3 3.91 MIL/MM3 Hemoglobin 11.7 GM/DL 10.3 GM/DL Hematocrit 34.7 % 30.8 % Mean Corpuscular Volume 78.1 FL 78.8 FL Mean Corpuscular Hemoglobin 26.4 PG 26.4 PG Mean Corpuscular Hemoglobin Concent 33.8 % 33.4 % Red Cell Distribution Width 13.9 % 14.3 % Platelet Count 281 TH/MM3 254 TH/MM3 Mean Platelet Volume 8.2 FL 7.9 FL Neutrophils (%) (Auto) 81.5 % 76.7 % Lymphocytes (%) (Auto) 7.0 % 13.8 % Monocytes (%) (Auto) 11.0 % 8.2 % Eosinophils (%) (Auto) 0.2 % 1.1 % Basophils (%) (Auto) 0.3 % 0.2 % Neutrophils # (Auto) 7.9 TH/MM3 4.4 TH/MM3 Lymphocytes # (Auto) 0.7 TH/MM3 0.8 TH/MM3 Monocytes # (Auto) 1.1 TH/MM3 0.5 TH/MM3 Eosinophils # (Auto) 0.0 TH/MM3 0.1 TH/MM3 Basophils # (Auto) 0.0 TH/MM3 0.0 TH/MM3 CBC Comment DIFF FINAL DIFF FINAL Differential Comment Laboratory Tests Test 01/18/18 19:30 01/19/18 13:44 Blood Urea Nitrogen 8 MG/DL 7 MG/DL Creatinine 0.74 MG/DL 0.54 MG/DL Random Glucose 80 MG/DL 92 MG/DL Total Protein 8.3 GM/DL 7.0 GM/DL Albumin 3.4 GM/DL 2.8 GM/DL Calcium Level 9.4 MG/DL 8.8 MG/DL Alkaline Phosphatase 66 U/L 58 U/L Aspartate Amino Transf (AST/SGOT) 13 U/L 10 U/L Alanine Aminotransferase (ALT/SGPT) 17 U/L 14 U/L Total Bilirubin 0.2 MG/DL 0.1 MG/DL Sodium Level 132 MEQ/L 138 MEQ/L Potassium Level 3.3 MEQ/L 3.5 MEQ/L Chloride Level 100 MEQ/L 106 MEQ/L Carbon Dioxide Level 21.0 MEQ/L 22.5 MEQ/L Anion Gap 11 MEQ/L 10 MEQ/L Estimat Glomerular Filtration Rate 118 ML/MIN 169 ML/MIN Human Chorionic Gonadotropin, Quant [id number] MIU/ML Microbiology Date/Time Source Procedure Growth Status 01/18/18 23:10 Blood Peripheral Aerobic Blood Culture - Preliminary NO GROWTH IN 2 DAYS Resulted 01/18/18 23:10 Blood Peripheral Anaerobic Blood Culture - Preliminary NO GROWTH IN 2 DAYS Resulted 01/18/18 23:06 Blood Peripheral Aerobic Blood Culture - Preliminary NO GROWTH IN 2 DAYS Resulted 01/18/18 23:06 Blood Peripheral Anaerobic Blood Culture - Preliminary NO GROWTH IN 2 DAYS Resulted 01/18/18 19:30 Urine Random Urine Urine Culture - Final 50-100,000 CFU/ML MIXED GRAM POSITIVE... Complete 01/18/18 19:30 Wound Buttock Gram Stain - Final Resulted 01/18/18 19:30 Wound Buttock Wound Culture - Preliminary Resulted Imaging Last Impressions Pelvis Ultrasound 01/18/18 0000 Signed Impressions: Service Date/Time: Thursday, January 18, 2018 19:55 - CONCLUSION: 1. Single intrauterine gestational sac corresponding to 10 weeks 4 days. 2. bradycardia with heart rate up to 97 bpm. 3. Small amount of free fluid in the pelvis. Kai Mcintosh MD Physical Exam GENERAL: This is a well-nourished, well-developed patient, in no apparent distress. SKIN: No rashes, ecchymoses or lesions. Cool and dry. HEAD: Atraumatic. Normocephalic. No temporal or scalp tenderness. EYES: Pupils equal round and reactive. Extraocular motions intact. No scleral icterus. No injection or drainage. ENT: Nose without bleeding, purulent drainage or septal hematoma. Throat without erythema, tonsillar hypertrophy or exudate. Uvula midline. Airway patent. NECK: Trachea midline. Supple, nontender, no meningeal signs. CARDIOVASCULAR: Regular rate and rhythm without murmurs, gallops, or rubs. RESPIRATORY: Clear to auscultation. Breath sounds equal bilaterally. No wheezes , rales, or rhonchi. GASTROINTESTINAL: Abdomen soft, non-tender, nondistended. MUSCULOSKELETAL: Extremities without clubbing, cyanosis, or edema. No joint tenderness, effusion, or edema noted. No calf tenderness. Negative Homans sign bilaterally. NEUROLOGICAL: Awake and alert. Non focal Left gluteal area with packing noted. Induration around the abscess site same as yday. Packing with pale yellow discharge. Psych cooperative IV line sites with no e.o infection. Assessment & Plan Remarks Left gluteal abscess s/p I&D at 10 weeks Recs Continue Keflex Continue Clindamycin oral. Tolerated above regimen ok to [facility] home on 7 more days of treatment. Dw patient if induration persists or worsening clinically to go to nearest ED [facility] to [place] where she is moving today. jose eduardo RN Dw patient. Will sign off please call back if any change in clinical condition or questions. Rohini Felix MD January 20, 2018 16:17
== END 2018-01-20 16:26 | disposition home or self-care (01) | DRG 781 ==
LOC: NEPD 15:21 → NEDA 23:30 → N04A 01-19 00:25
PROVIDERS: ADMIT Family Medicine; ATTEND Family Medicine
PROC: 0H98XZZ Drainage of Buttock Skin, External Approach (ICD-10-PCS; principal; 2018-01-18)
DX: O98.811 Other maternal infectious and parasitic diseases complicating pregnancy, first trimester (principal); A41.9 Sepsis, unspecified organism; L02.31 Cutaneous abscess of buttock; O99.711 Diseases of the skin and subcutaneous tissue complicating pregnancy, first trimester; R00.0 Tachycardia, unspecified; Z3A.10 10 weeks gestation of pregnancy
CPT/HCPCS: 10060; 76700; 76817; 80053; 81001; 84702; 84703; 85025; 86403; 87040; 87070; 87086; 87205; 96360; J3370; J7030; J7050